=== PATIENT | male | born 1940 | race Caucasian/White ===

== ENCOUNTER 2018-09-01 14:28 | Emergency (ER) | payer SELFPAY ==
[~2018-09-01] VITALS: Ht 182.9 cm; Wt 136.1 kg
[2018-09-01 14:28] VITALS: Ht 182.9 cm; Wt 136.1 kg
== END 2018-09-01 18:23 | disposition expired ==
LOC: ED 14:28
DX: I46.9 Cardiac arrest, cause unspecified (principal)